=== PATIENT | female | born 1985 | race Caucasian/White ===

== ENCOUNTER → 2021-08-09 15:58 | Outpatient (CLI) | payer OTHER, SELFPAY ==
[2021-08-09 17:15] LABS: COVID19 -Nasal RAPID Negative (Negative)
== END ==
PROVIDERS: Referring Provider Obstetrics & Gynecology; Visit Provider Obstetrics & Gynecology
DX: Z01.812 Encounter for preprocedural laboratory examination (principal); Z20.822 Contact with and (suspected) exposure to COVID-19
CPT/HCPCS: 87635

== ENCOUNTER 2021-08-10 11:47 | Day surgery (SDC) | payer OTHER, SELFPAY ==
[2021-08-04 08:58] VITALS: BMI 25.7
[2021-08-10] VITALS (14 sets, daily range): BP systolic 96–128; BP diastolic 56–83; PULSE 60–87; RESP 11–18; TEMP 36.4–36.7; O2SAT 98–100; BMI 25.7
--- NOTE | 2021-08-10 | PATH_ITS ---
[facility] Accession Number: [id number] . 01 Material submitted: . uterus - UTERUS AND BILATERAL FALLOPIAN TUBES . 02 Diagnosis: Uterus and Bilateral Fallopian Tubes, Hysterectomy and Bilateral Salpingectomy (Weight 161 grams): Cervix with no significant histomorphologic abnormality. Endocervix with occasional prominent nabothian gland cysts and no significant histomorphologic abnormality. Late secretory endometrium; negative for glandular hyperplasia, cytologic atypia or malignancy. Myometrium with a benign leiomyoma (17 mm); negative for atypia or malignancy. Uterine serosa with no significant histomorphologic abnormality. Fallopian tubes x2 with benign paratubal cysts (1-3 mm); negative for atypia or malignancy. MRV 08/12/2021 1511 Local . 02 Electronically signed: . Cayla Underwood MD, Pathologist NPI- [id number] . 01 Gross description: . The specimen is received in formalin, labeled uterus and bilateral fallopian tubes and consists of a 161-gram uterus, cervix and attached bilateral fallopian tubes. The specimen measures 11.5 cm from superior fundus to cervix by 6.5 cm from cornu to cornu by 4.5 cm from anterior to posterior. The serosa is hernandez-pink and smooth. The hernandez-pink wrinkled ectocervix measures 4.5 x 3.6 cm and there is a 1.4 x 0.7 cm os. The specimen is bivalved to reveal a hernandez-pink herringbone endocervical mucosa. The endometrial cavity measures 4.5 x 3.0 cm and displays a hernandez-pink ragged endometrium measuring 0.3 cm in thickness. The myometrium is hernandez-pink and trabeculated, measuring 1.9 cm in thickness. There is a 1.7 x 1.2 x 1.0 cm hernandez-white whorled leiomyoma with no areas of hemorrhage, necrosis or cystic degeneration. The right fallopian tube measures 6.0 cm in length by 1.0 cm in diameter, and the left fallopian tube measures 6.5 cm in length by 1.1 cm in diameter. The serosa is pink-purple and smooth with paratubal cysts ranging from 0.1-0.3 cm. Sectioning reveals a hernandez mucosa and lumen measuring 0.5 cm in diameter. Paper Stacker sections are submitted. . A1: Anterior cervix. A2: Posterior cervix. A3-A5: Anterior uterus, to include sales representative canvas products leiomyoma. A6-A7: Posterior uterus. A8: Serosal slivers. A9: Right fallopian tube, sales representative canvas products cross sections and bisected fimbria. A10: Left fallopian tube, sales representative canvas products cross sections and bisected fimbria. ([id number]) /MRV 08/11/2021 1201 Local . 02 Pathologist provided ICD-10: N92.0, N94.6 . 02 CPT . 489986 Performed at: 01 [facility] [address] [address], [place], [place] [id number] MD King Blevins MD Phone: [phone] Performed at: 02 [facility] [address] [place] [id number] MD Gisela Paul MD Phone: [phone]
[2021-08-10] MEDS: ACETAMINOPHEN 325 MG TABLET 975 MG PO (12:24)
[2021-08-10] MEDS: LACTATED RINGERS 1,000 ML 100 ML IV ×2 (12:25→17:38)
[2021-08-10] MEDS: SCOPOLAMINE 1 PATCH TOP (12:25)
--- NOTE | 2021-08-10 14:39 | PM.PREOP ---
Pre-operative Note COVID-19 COVID-19 status: Negative Result date/Date tested (Pos, Neg/Pending): 08/09/21 Interval Note History & Physical reviewed/Exam performed by Physician: Yes Changes to H&P: No
[2021-08-10] MEDS: CEFAZOLIN 1 GM VIAL 2 GM IV (14:54)
--- NOTE | 2021-08-10 15:11 | SUR.OPER ---
Lithotomy on padded OR bed. [place] Pad Positioner under torso. Head on pillow, arms padded and tucked at sides. Legs secured in padded yellow fins stirrups.
[2021-08-10] MEDS: BUPIVACAINE 0.5% (PF) 30 ML, EPINEPHrine 0.15 MG INJ (15:20)
[2021-08-10] MEDS: ROPIVACAINE 0.2% PF 2 MG/ML 10ML AMP 20 ML INJ (15:56)
--- NOTE | 2021-08-10 16:14 | PM.OP.1 ---
Operative Date/Time/Diagnoses Date of procedure: 08/10/21 Time of procedure: 16:14 Pre-op diagnosis: Menorrhagia, dysmenorrhea, dyspareunia Post-op diagnosis: same Procedure & Clinicians Procedure: Laparoscopic-assisted vaginal hysterectomy with bilateral salpingectomies Same procedure as scheduled: Yes Indications: Patient with menorrhagia, dysmenorrhea, dyspareunia requesting hysterectomy. Surgeon: Lorena Cronin Click Yes if Unassisted: Yes Anesthesia Type: General Operative Notes Findings: Normal tubes, ovaries, uterus. No obvious internal hernias, no endometriosis visualized, no scar tissue. Normal appearing bowel surface. Normal appearing liver edge. Closure Type: primary Specimen(s): other (Uterus and fallopian tubes) Applied: catheter (Glaser) Estimated Blood Loss (mL): 175 Blood products transfused: none Procedure in detail: Patient was brought to the operating room where she underwent general anesthesia. She was placed in [facility] stirrups. A check system was reviewed with the staff in the room. 2 gram Ancef were in prior to beginning case. Warming was in place with a Sofia Hugger. Pulsatile stockings were in place and functional. She was prepped and draped in the usual sterile fashion. A single-tooth tenaculum was placed on the anterior lip of the cervix. The cervix was dilated to #6 Hegar dilator to allow the uterine manipulator to be placed through the cervix into the uterus with the balloon inflated with 3 mL of air. A Glaser catheter was placed. Area of the umbilical incision was injected with lidocaine. An incision was made with the scalpel. The varies needle was placed in the abdomen. Correct placement was noted by withdrawing on the syringe and the having a drop of water fall easily through the syringe into the abdomen. The abdomen was insufflated with CO2. 5 mm trochars were placed in the right and left lower quadrant under direct visualization. There did not appear to be any damage with placement of the trochars. The PK generator was used to cauterize and cut the mesosalpinx and the utero-ovarian ligament. The round ligament and broad ligament down to cauterization of the uterine arteries. Next the procedure was switched to a vaginal approach. Lidocaine was injected around the cervix. single-tooth tenaculum was placed on the posterior lip of the cervix and a posterior colpotomy incision was made. The uterosacral ligaments were clamped, cut, and ligated with 0 Vicryl suture which was used throughout the rest the case unless otherwise indicated. The cervix was circumscribed with the scalpel. The bladder pillars were clamped cut and ligated using the LigaSure. Using sharp and blunt dissection the bladder was pushed away from the cervix. Sequential bites were taken up the cardinal and broad ligaments with the LigaSure. An anterior colpotomy incision was made and the bladder held away from the uterus. The uterus tubes and ovaries were removed vaginally. Adequate hemostasis noted. The vaginal cuff was closed from anterior to posterior with [id number] sutures. The abdomen was reinsufflated and adequate hemostasis was noted. 10 cc of ropivacaine was placed on the incision site of the pelvis. The CO2 was allowed to escape from the abdomen and the trochars were removed. The skin was closed with 4-0 Monocryl. Counts of instruments and sponges were correct. Patient went to recovery room in good condition. Complications: none Post-operative Condition: stable Disposition: Acute Care Plan for aftercare: Home when fully recover from anesthesia, tolerating regular diet, and pain under control with oral pain meds.
[2021-08-10] MEDS: fentaNYL 100 MCG/2 ML INJ IV ×2 (16:20→16:39)
[2021-08-10] MEDS: OXYCODONE IR 5 MG TABLET PO ×3 (16:36→20:47)
--- NOTE | 2021-08-10 17:26 | SUR.PHASEI ---
Pacu note: 1715- Patient awake,alert, still alittle drowsy. vss.RA sats wnl . Meets criteria for discharge to floor. Pain eased up, dozes prn, reports 5/10 on discharge. no nausea. richardson to gravity clear yellow -small amt in tubing. abdominal dressings x 3 cdi. peripad with no further drainage noted. transfer to room by bed with belonging bag x 1 and personal bag x 1. 1720-Bedside handoff done with RNDeven on floor. Spouse at side. Side rails up, bed locked/low position. hob elevated 30 degrees. Care transferred to floor RN.
[2021-08-10] MEDS: KETOROLAC 30 MG/ML VIAL IV ×2 (17:37→23:57)
[2021-08-10] MEDS: ONDANSETRON 4 MG/2 ML INJ IV (17:37)
[2021-08-10] MEDS: ACETAMINOPHEN 325 MG TABLET 650 MG PO (19:07)
[2021-08-10] MEDS: METOCLOPRAMIDE 10 MG/2 ML INJ IV (20:47)
[2021-08-11] VITALS: BP 93/56; PULSE 86; RESP 16; TEMP 36.4; O2SAT 97
--- NOTE | 2021-08-11 00:25 | PC.NURSE ---
Patient alert and oriented, having 8/10 pain, nausea and vomiting. Received order from Dr. Weiss for reglan and increased dose of oxycodone which has been effective. Pain 4/10 and no further nausea or vomiting. Dressings to abdomen are clean, dry, and intact.
[2021-08-11] MEDS: LACTATED RINGERS 1,000 ML 100 ML IV (04:14)
[2021-08-11] MEDS: OXYCODONE IR 10 MG TABLET PO (04:18)
[2021-08-11 04:40] VITALS: BP 95/55; PULSE 84; RESP 16; TEMP 36.6; O2SAT 99
[2021-08-11] MEDS: KETOROLAC 30 MG/ML VIAL IV ×2 (05:50→10:29)
[2021-08-11 06:06] LABS: Add Manual Diff / Slide Review NO; Basophils Absolute Auto 0 /uL (0-100); Basophils Percent Auto 0.1 % (0-2); Eosinophils Absolute Auto 0 /uL (0-450); Eosinophils Percent Auto 0.1 % (2-4); Hematocrit 36.6 % (36-46); Hemoglobin 12.2 g/dL (12.0-16.0); Lymphocytes Absolute Auto 500 /uL (1100-4500); Lymphocytes Percent Auto 3.8 % (25-40); Mean Corpuscular HGB Conc 33.3 % (30-36); Mean Corpuscular Hemoglobin 31.5 PG (26-34); Mean Corpuscular Volume 94.5 fL (80-100); Monocytes Absolute Auto 600 /uL (0-900); Monocytes Percent Auto 4.2 % (3-14); Neutrophils Absolute Auto 12300 /uL (1500-7000); Neutrophils Percent Auto 91.8 % (50-75); Platelet Count 244 X10^3/uL (150-400); Red Blood Cell Count 3.87 X10^6/uL (4.0-5.2); White Blood Cell Count 13.4 X10^3/uL (4.5-11.0)
[2021-08-11 07:00] VITALS: O2SAT 99
[2021-08-11 08:00] VITALS: BP 101/56; PULSE 77; RESP 14; TEMP 36.1; O2SAT 99
--- NOTE | 2021-08-11 08:21 | PM.DS.1 ---
History of Present Illness History of Present Illness Date Patient Seen: 08/11/21 Time Patient Seen: 08:22 Chief complaint: OPB Narrative: Patient underwent a laparoscopic assisted vaginal hysterectomy with bilateral salpingectomy on 08/10/2021 for menorrhagia, dysmenorrhea, dyspareunia. Discharge Providers Provider Discharge Date: 08/11/21 Primary care physician: LACHO Alvarenga Discharge provider: Lorena Cronin MD Summary Hospital Course Discharge Diagnosis: Menorrhagia, dysmenorrhea, dyspareunia Hospital Course: Patient underwent a laparoscopic-assisted vaginal hysterectomy with bilateral salpingectomy on 08/10/2021. Patient is tolerating regular diet. Her pain is under control. Status at Discharge Cognitive/behavioral status at discharge: oriented Functional status at discharge: independent ambulation Overall status at discharge: patient is progressing back to baseline Time Spent with Patient Time spent: Less than 30 minutes Exam Vital Signs (past 8 hours): - 08/11/21 04:40 Temperature 97.9 F Pulse Rate 84 Respiratory Rate 16 Blood Pressure 95/55 L Pulse Oximetry 99 Oxygen Delivery Method Room Air Oxygen Flow Rate 0 Narrative Exam Narrative: Patient's abdomen is soft, nontender. Dressings are clean, dry, intact. Minimal vaginal bleeding. Extremities without edema and nontender. Objective Labs Result Diagrams: 08/11/21 05:55 Labs: Laboratory Results - last 24 hr 08/11/21 05:55 WBC 13.4 H RBC 3.87 L Hgb 12.2 Hct 36.6 MCV 94.5 MCH 31.5 MCHC 33.3 RDW 13.0 Plt Count 244 Neut % (Auto) 91.8 H Lymph % (Auto) 3.8 L Mercer % (Auto) 4.2 Eos % (Auto) 0.1 L Baso % (Auto) 0.1 Neut # (Auto) 72433 H Lymph # (Auto) 500 L Mercer # (Auto) 600 Eos # (Auto) 0 Baso # (Auto) 0 PFSH Social History household members: spouse and children Smoking Status: Never smoker Discharge Assessment & Plan Assessment and Plan Assessment: Status post laparoscopic-assisted vaginal hysterectomy with bilateral salpingectomy Plan of Treatment: Patient is discharged home to be followed up in 2 weeks. Routine precautions reviewed with the patient. Discharge Plan Discharge Plan Patient Disposition: Home Discharge orders & Medications Discharge Orders: Discharge (Order); Ordered 08/11/21 Ordered By: Lorena Cronin Prescriptions: New ibuprofen 600 mg Tablet 600 mg PO Q6H PRN (Reason: Fever/Mild Pain (1-3)) Qty: 30 0RF oxycodone 5 mg Tablet 5 mg PO Q4HR PRN (Reason: Pain, Moderate (4-6)) Qty: 30 0RF Continued acyclovir PO PRN (Reason: Cold Sores) 0RF Rx Instructions: pt cant recall dose of medication Follow up/Referrals: Lorena Cronin MD [Physician] - As previously scheduled (08/26/2021 at 10:45 a.m.) Juanita Alcala ARNP [Primary Care Provider] - Diet/Activity/Treatments Diet: Regular Activity: Nothing in vagina or lifting over 20 lb for 6 weeks Skin/Wound/Dressing Care Report to your healthcare provider any signs of infection, such as:: chills, fever and increased pain Dressing: May remove Band-Aids today. Leave Steri-Strips in place, can get wet just pat dry. In 1 week get Steri-Strips wet and rub off Visit Report/Discharge Packet Instructions: DI for Hysterectomy, DI for Laparoscopy Discharge Data Primary Care Provider: Juanita Alcala Attending Provider: Lorena Cronin
[2021-08-11] MEDS: ACETAMINOPHEN 325 MG TABLET 650 MG PO (08:53)
== END 2021-08-11 12:55 | disposition home or self-care (01) ==
LOC: OR 11:49 → AC 15:17
PROVIDERS: PCP Nurse Practitioner Family; Referring Provider Specialist; Visit Provider Specialist
PROC: 0UT9FZZ Resection of Uterus, Via Natural or Artificial Opening With Percutaneous Endoscopic Assistance (ICD-10-PCS; CPT 58552; principal; 2021-08-10 13:30)
DX: N92.0 Excessive and frequent menstruation with regular cycle (principal); N94.6 Dysmenorrhea, unspecified; N94.10 Unspecified dyspareunia; J45.909 Unspecified asthma, uncomplicated; F41.9 Anxiety disorder, unspecified; N88.8 Other specified noninflammatory disorders of cervix uteri; D25.9 Leiomyoma of uterus, unspecified; N83.8 Other noninflammatory disorders of ovary, fallopian tube and broad ligament
CPT/HCPCS: 58552; 36415; 81025; 85025; J0171; J0330; J0690; J1100; J1885; J2250; J2405; J2704; J2765; J2795; J3010